=== PATIENT | female | born 1980 | race Caucasian/White ===

== ENCOUNTER → 2018-06-29 | Outpatient (CLI) | payer OTHER ==
[~2018-06-29] MED LIST: ALPRAZOLAM 0.50.5 M1 PO; AMBIEN 5 MG TABL5 M1 PO; COMPOUND CREAM; FELDENE20 MG PO; HYDROCODONE-AP1 EAC6 PO; IBUPROFEN 200200 M1 PO; IMITREX 50 MG T50 MG PO; KLONOPIN PO; LOESTRIN 24 FE1 EACH PO; LORTAB 5-500 T1 EAC1 PO; LYRICA 50 MG50 MG PO; MACRODANTIN25 MG PO; MINASTRIN 24 F1 EACH PO; MULTIVITAMINS1 EAC7 PO; NORTRIPTYLINE H10 M1 PO; PROZAC 20 MG20 M1 PO; PROZAC 20 MG20 MG PO; PROZAC10 MG PO; URECHOLINE 10 M10 M1 PO; VESICARE10 M1 PO
== END ==
LOC: M.MRI 05-26 07:30
DX: M51.17 Intervertebral disc disorders with radiculopathy, lumbosacral region (principal); G45.8 Other transient cerebral ischemic attacks and related syndromes